=== PATIENT | female | born 1935 ===

== ENCOUNTER 2019-12-03 12:30 | Inpatient (IN) | payer OTHER ==
[~2019-12-03] VITALS: Ht 157.5 cm; Wt 63.0 kg
[2019-12-07] MEDS ORDERED: GABAPENTIN600 MG (08:25)
[2019-12-07] MEDS ORDERED: SIMVASTATIN40 MG (08:25)
[2019-12-07] MEDS ORDERED: B-121000 MC1 (08:25)
[2019-12-07] MEDS ORDERED: TIMOLOL MALEATE5 M5 (08:25)
[2019-12-07] MEDS ORDERED: ZESTORETIC 20-1 EAC1 (08:25)
[2019-12-07] MEDS ORDERED: NORVASC2.5 MG (08:25)
[2019-12-07] MEDS ORDERED: MELATONIN1 MG (08:25)
[2019-12-07] MEDS ORDERED: ISOSORBIDE MONO30 M2 (08:25)
[2019-12-07] MEDS ORDERED: VITAMIN D350 MC1 (08:26)
[2019-12-09] MEDS ORDERED: INTESTINEX680 M1 PO (14:31)
[2019-12-09] MEDS ORDERED: OXYC1TAB9 PO (14:31)
[2019-12-09] MEDS ORDERED: HYOSCYAMINE0.125 M1 SL (14:31)
== END 2019-12-09 15:21 | disposition home or self-care (01) | DRG 331 ==
LOC: EDSTATUS 12:30 → ADM 12:30 → O/R 12-06 07:50 → SURH 12-06 07:50
PROVIDERS: ADMIT Surgery; ATTEND Surgery
PROC: 0DBF4ZZ Excision of Right Large Intestine, Percutaneous Endoscopic Approach (ICD-10-PCS; principal; 2019-12-06 12:15)
DX: C18.0 Malignant neoplasm of cecum (principal); I10 Essential (primary) hypertension